=== PATIENT | male | born 1970 | race Caucasian/White ===

== ENCOUNTER 2017-06-08 22:15 | Inpatient (IN) | payer BC ==
[~2017-06-08] VITALS: Ht 180.3 cm; Wt 87.8 kg
[2017-06-08 22:54] LABS: EOSINOPHIL (%) 1.3 % (0-5); EOSINOPHIL COUNT 0.1 K/uL (0-0.3); HEMATOCRIT 37.1 % (38.0-50.0); IMMATURE GRANULOCYTE (%) 0.3 % (0.0-0.7); INSTRUMENT ABS NEUTROPHIL CT 4.2 K/uL; LYMPHOCYTE COUNT 3.5 K/uL (1.0-2.8); MCH 31.7 PG (29.0-34.0); MCHC 34.5 G/DL (30.0-36.0); MCV 91.8 FL (86-99); MONOCYTE (%) 9.8 % (3-12); MONOCYTE COUNT 0.9 K/uL (0-0.8); NEUTROPHIL COUNT 4.2 K/uL (1.8-6.4); PLATELET COUNT 233 K/uL (156-360); RBC DIS.WIDTH-CV 12.5 % (11.8-14.6); RBC DIS.WIDTH-SD 42.2 % (39-53); RED BLOOD COUNT 4.04 M/uL (4.00-5.50); WHITE BLOOD COUNT 8.8 K/uL (4.1-10.2)
[2017-06-08 23:01] LABS: AMYLASE 53 IU/L (1-118); CHLORIDE 103 mEq/L (99-109); POTASSIUM 3.4 mEq/L (3.7-5.4); SODIUM 139 mEq/L (136-147)
[2017-06-08 23:03] LABS: GLUCOSE 101 mg/dL (70-99)
[2017-06-08 23:04] LABS: ANION GAP 12 MEQ/L (2-14)
[2017-06-08 23:06] LABS: GFR ESTIMATE (CALCULATED) > 59 mL/min/ (58.99-99999); SERUM ETHYL ALCOHOL 343 mg/dL
[2017-06-08 23:07] LABS: UREA NITROGEN (BUN) 16 mg/dL (9-23)
[2017-06-08 23:09] LABS: LIPASE 51 U/L (1.0-51.0)
[2017-06-08] MEDS ORDERED: CLONAZEPAM0.5 MG PO (23:57)
[2017-06-08] MEDS ORDERED: ZOLPIDEM TARTRA10 MG PO (23:57)
[2017-06-08] MEDS ORDERED: PRAVASTATIN SOD80 MG PO (23:58)
[2017-06-09] VITALS (19 sets, daily range): BP systolic 105–136; BP diastolic 63–92
[2017-06-09 02:04] LABS: METH RESISTANT S AUREUS PCR NEGATIVE (NEGATIVE)
[2017-06-09 02:17] LABS: PROBE CHECK PASS; SPECIMEN PROCESSING CONTROL PASS
[2017-06-09 06:36] LABS: MCHC 33.6 G/DL (30.0-36.0); MCV 92.2 FL (86-99); MEAN PLAT.VOLUME 9.4 uM^3 (9.0-12.4); PLATELET COUNT 248 K/uL (156-360); RBC DIS.WIDTH-CV 12.8 % (11.8-14.6); RBC DIS.WIDTH-SD 43.3 % (39-53); RED BLOOD COUNT 4.23 M/uL (4.00-5.50); WHITE BLOOD COUNT 10.2 K/uL (4.1-10.2)
[2017-06-09 06:59] LABS: ALKALINE PHOSPHATASE 69 IU/L (3-129); ANION GAP 12 MEQ/L (2-14); CHLORIDE 106 MEQ/L (99-109); GFR ESTIMATE (CALCULATED) > 59 mL/min/ (58.99-99999); GLUCOSE 124 mg/dL (70-99); SAMPLE HEMOLYSIS CHECK 0; SAMPLE ICTERIC CHECK 0; SAMPLE LIPEMIA CHECK 0; SODIUM 143 MEQ/L (136-147); TOTAL BILIRUBIN 0.3 MG/DL (0.0-1.0); UREA NITROGEN (BUN) 13 mg/dL (9-23)
[2017-06-09 07:03] LABS: POTASSIUM 4.5 MEQ/L (3.7-5.4)
[2017-06-09 08:38] LABS: POINT-OF-CARE METER ID UU13113702
[2017-06-09 09:33] LABS: HEMATOCRIT 39.1 % (38.0-50.0); MCH 31.8 PG (29.0-34.0); MCHC 34.3 G/DL (30.0-36.0); MCV 92.7 FL (86-99); MEAN PLAT.VOLUME 9.4 uM^3 (9.0-12.4); PLATELET COUNT 269 K/uL (156-360); RBC DIS.WIDTH-CV 12.8 % (11.8-14.6); RBC DIS.WIDTH-SD 43.6 % (39-53); RED BLOOD COUNT 4.22 M/uL (4.00-5.50); WHITE BLOOD COUNT 12.9 K/uL (4.1-10.2)
[2017-06-09 09:57] LABS: TROP-I INTERPRETATION NEGATIVE; TROPONIN-I < 0.01 ng/mL (0.0-0.30)
[2017-06-09 10:10] LABS: ANION GAP 17 MEQ/L (2-14); CHLORIDE 103 MEQ/L (99-109); GFR ESTIMATE (CALCULATED) > 59 mL/min/ (58.99-99999); GLUCOSE 121 mg/dL (70-99); POTASSIUM 3.9 MEQ/L (3.7-5.4); SAMPLE HEMOLYSIS CHECK 0; SAMPLE ICTERIC CHECK 0; SAMPLE LIPEMIA CHECK 0; SODIUM 143 MEQ/L (136-147); UREA NITROGEN (BUN) 12 mg/dL (9-23)
[2017-06-10] VITALS (10 sets, daily range): BP systolic 118–131; BP diastolic 79–96
[2017-06-11] VITALS: BP 124/81
[2017-06-11 03:00] VITALS: BP 135/77
[2017-06-11 08:00] VITALS: BP 119/74
[2017-06-11 12:00] VITALS: BP 120/77
[2017-06-11] MEDS ORDERED: THERAGRAN1 TABLET PO (12:21)
[2017-06-11] MEDS ORDERED: AZITHROMYCIN250 MG PO (12:21)
[2017-06-11] MEDS ORDERED: HYDROCODON-ACE1 EAC7 PO (12:21)
== END 2017-06-11 15:20 | disposition home or self-care (01) | DRG 564 ==
LOC: TRA 22:15 → 2SOUTH 23:41 → 4WEST 23:41 → ENRESERV 23:43 → EDOF 06-09 00:26 → 4WEST 06-09 00:48 → ENRESERV 06-10 10:43 → 4WEST 06-11 15:20
PROVIDERS: Emergency Medicine; Internal Medicine; Surgery
PROC: 0HQ1XZZ Repair Face Skin, External Approach (ICD-10-PCS; principal; 2017-06-08)
DX: S02.81XA Fracture of other specified skull and facial bones, right side, initial encounter for closed fracture (principal); S06.5X0A Traumatic subdural hemorrhage without loss of consciousness, initial encounter; Y90.8 Blood alcohol level of 240 mg/100 ml or more; S01.111A Laceration without foreign body of right eyelid and periocular area, initial encounter; F10.229 Alcohol dependence with intoxication, unspecified; G93.89 Other specified disorders of brain; E78.5 Hyperlipidemia, unspecified; F07.81 Postconcussional syndrome; W10.8XXA Fall (on) (from) other stairs and steps, initial encounter; M77.31 Calcaneal spur, right foot; R09.02 Hypoxemia; Y92.009 Unspecified place in unspecified non-institutional (private) residence as the place of occurrence of the external cause
CPT/HCPCS: 70450; 70486; 71260; 72125; 72129; 72132; 73110; 73600; 74177; 80048; 80048 91; 80053; 81003; 82150; 82948; 83690; 83735; 84484; 85025; 85027; 86850; 86900; 86901; 87641; 92523 GN; 93005; 99281; 99285; G0480; J0690; J2270; J2405; J3480

== ENCOUNTER 2017-07-17 10:04 | Day surgery (SDC) | payer BC ==
[~2017-07-17] VITALS: Ht 180.3 cm; Wt 88.4 kg
[~2017-07-17 10:04] MED LIST: AZITHROMYCIN250 MG PO; CLONAZEPAM0.5 MG PO; HYDROCODON-ACE1 EAC7 PO; PRAVASTATIN SOD80 MG PO; THERAGRAN1 TABLET PO; ZOLPIDEM TARTRA10 MG PO
[2017-07-17 10:23] VITALS: BP 118/82
[2017-07-17 14:00] VITALS: BP 96/52
[2017-07-17 14:40] VITALS: BP 124/81
== END 2017-07-17 15:00 | disposition home or self-care (01) ==
LOC: SDC 10:04
DX: H33.001 Unspecified retinal detachment with retinal break, right eye (principal); K21.9 Gastro-esophageal reflux disease without esophagitis; F41.9 Anxiety disorder, unspecified; E78.00 Pure hypercholesterolemia, unspecified
CPT/HCPCS: J0690; J2250; J2405; J3010; J3300